=== PATIENT | male | born 1945 | race Caucasian/White ===

== ENCOUNTER → 2017-12-15 10:48 | Outpatient (CLI) | payer MEDICARE, SELFPAY ==
[2017-12-15 12:00] LABS: Add Manual Diff / Slide Review NO; Basophils Percent Auto 0.3 % (0-2); Eosinophils Percent Auto 0.7 % (2-4); Hematocrit 44.6 % (41-53); Hemoglobin 15.1 g/dL (13.5-17.5); Lymphocytes Percent Auto 28.3 % (25-40); Mean Corpuscular HGB Conc 33.9 % (30-36); Mean Corpuscular Hemoglobin 33.3 PG (26-34); Mean Corpuscular Volume 98.2 fL (80-100); Monocytes Percent Auto 7.6 % (3-14); Neutrophils Absolute Auto 4500 /uL (3000-5900); Neutrophils Percent Auto 63.1 % (50-75); Platelet Count 221 X10^3/uL (150-400); Red Blood Cell Count 4.54 X10^6/uL (4.5-5.9); Red Cell Distribution Width 13.9 % (11.6-14.8); White Blood Cell Count 7.1 X10^3/uL (4.5-11.0)
[2017-12-15 12:22] LABS: Carbon Dioxide 21 mmol/L (22-32); Chloride 107 mmol/L (98-107); HEMOLYSIS < 15 (0-50); Sodium 142 mmol/L (137-145)
== END ==
PROVIDERS: PCP Family Medicine; Visit Provider Orthopaedic Surgery
DX: M16.11 Unilateral primary osteoarthritis, right hip (principal); Z01.818 Encounter for other preprocedural examination; Z01.812 Encounter for preprocedural laboratory examination
CPT/HCPCS: 36415; 80051; 85025; 93005

== ENCOUNTER 2018-01-11 08:48 | Inpatient (IN) | payer MEDICARE, SELFPAY ==
[2018-01-04 08:46] VITALS: BMI 28.1
[2018-01-11] VITALS (12 sets, daily range): BP systolic 96–143; BP diastolic 46–85; PULSE 57–88; RESP 12–18; TEMP 36.1–36.6; O2SAT 94–100; BMI 28.5
--- NOTE | 2018-01-11 06:00 | DI.RAD.S_ITS ---
PROCEDURE: XR PELVIS 1-2V INDICATIONS: TOTAL RIGHT HIP TECHNIQUE: Single view(s) of the pelvis acquired. COMPARISON: None. FINDINGS: Bones: Expected postoperative alignment of right hip arthroplasty. No fractures or dislocations. No suspicious bony lesions. Soft tissues: Visualized bowel gas pattern is normal. No suspicious soft tissue calcifications. Right hip postsurgical soft tissue changes and skin rakesh. IMPRESSION: Expected postoperative appearance Dictated by: Lawson Verde M.D. on 01/11/2018 at 16:37 Approved by: Lawson Verde M.D. on 01/11/2018 at 16:38
[2018-01-11] MEDS: LACTATED RINGERS 1,000 ML 42 ML IV ×2 (09:05→11:32)
[2018-01-11] MEDS: ACETAMINOPHEN 325 MG TABLET 975 MG PO ×3 (09:32→20:56)
[2018-01-11] MEDS: CELECOXIB 200 MG CAPSULE PO (09:32)
[2018-01-11] MEDS: PREGABALIN 75 MG CAPSULE PO (09:32)
[2018-01-11] MEDS: CEFAZOLIN 1 GM VIAL IV (09:56)
--- NOTE | 2018-01-11 10:00 | PM.PREOP ---
Pre-operative Note Interval Note Pre-op Check: Yes History & Physical Reviewed by Physician Changes: No
--- NOTE | 2018-01-11 10:16 | PC.NURSE ---
Day shift: Pt not on AC unit at this time. 1000 start rt hip.
--- NOTE | 2018-01-11 10:35 | SUR.OPER ---
Lateral on padded OR bed. Gel axillary roll. Arms secured on padded armboard with pillow supporting top arm. Padded hip positioner braces x4 - anterior and posterior chest and pelvis. Additional gel pad used anterior pelvis. Gel pad under bottom leg from knee to foot and secured with tape over sheet.
[2018-01-11] MEDS: BUPIVACAINE 0.25% W/ EPI VIAL 50 ML INJ (10:41)
[2018-01-11] MEDS: TRANEXAMIC ACID 1,000 MG VIAL 2000 MG INJ (10:42)
--- NOTE | 2018-01-11 11:51 | PM.OP.1 ---
Operative Date/Time/Diagnoses Date of procedure: 01/11/18 Time of procedure: 11:51 Pre-op diagnosis: Right hip degenerative joint disease Post-op diagnosis: same Procedure & Clinicians Procedure: Right total hip arthroplasty (CPT code 61760 with gynecological assistant) Same procedure as scheduled: Yes Indications: Patient is an 71-year-old male with severe right hip DJD. The patient has pain with activities and at rest, limited ambulation and activity tolerance, difficulties with ADLs, and failure of conservative treatment. We have discussed the nature of condition, treatment options, risks and benefits, and patient elects to proceed with total hip arthroplasty and gives informed consent. Surgeon: Hernán Almonte Threat Analyst: Kym Thao Anesthesia Type: General and Spinal Operative Notes Closure Type: primary Specimen(s): none sent Implants & Drains: Acetabulum: Hernández [employer]hew R3 acetabular component size 56 mm Femoral component: Hernán[employer]hew Synergy stem size 14 with high offset Femoral head: 36 mm + 0 cobalt chrome Estimated Blood Loss (mL): 100 Procedure in detail: After satisfaction induction of anesthetic, and administration of IV antibiotics, the patient was positioned in the lateral decubitus position with all bony prominences well padded and pelvic position secured using a hip journalism teacher positioning device. Right hip and lower extremity prepped and draped in the usual sterile fashion, 1st dose of intravenous tranexamic acid was administered, then a longitudinal incision was created centered over the greater trochanter and carried sharply through the skin and subcutaneous tissues down to the fascia gilda which was divided longitudinally and retracted with a Charnley retractor. External rotators visualize, cut, tagged, and retracted posteriorly, then the capsule was cut in a T-type fashion with the corners tagged and retracted. Hip was dislocated and femoral neck cut made according to preoperative templating. Acetabular retractors then placed, and the acetabular labrum and osteophytes were excised. The acetabulum was then sequentially reamed to 55 mm with an excellent circumferential ream and fit with the trial. The trial component was removed and a permanent size 56 mm Hernández [employer]hew R3 acetabular component was selected, positioned, and impacted with satisfactory position and fixation achieved. Permanent liner was then inserted with the elevated lip directed posteriorly. Soft tissue then removed off the lateral femoral neck in the lateral neck was entered using a box osteotome. T-handled reamers placed down the canal followed by sequential broaching to 14 with the final broach left in place for trial reduction which demonstrated excellent leg length, range of motion, and stability characteristics with a high offset neck and 36 mm +0 trial ball. The trial and broach were removed, and a permanent size 14 high offset Hernández [employer]hew Synergy stem was selected and inserted with excellent position and fixation achieved. Another trial reduction yielded the above characteristics so the trial ball was exchanged for a permanent 36 mm +0 cobalt chrome ball. The hip was irrigated and reduced and excellent leg length range of motion and stability characteristics were achieved and maintained. The hip was copiously irrigated, and the capsule repaired with #2 Ethibond, and the piriformis was repaired back to the greater trochanter with the same. Fascia gilda closed with interrupted #1 Ethibond sutures, and the subcutaneous tissues were closed in 2 layers of 0 Vicryl and 2 0 Vicryl. Skin was closed with rakesh and sterile dressings applied. Second dose of tranexamic acid was administered intravenously, and the anesthetic was terminated. Complications: none Condition: stable Disposition: PACU Plan for aftercare: Patient will be admitted to the acute care [facility], and anticipate discharge on postop day 3 and anticipated ECF transfer due to his living situation, with follow-up in office in 10-14 days. Outpatient physical therapy will be arranged and patient will continue to observe posterior hip precautions. Patient will continue use of postoperative Lovenox for 10 days postop.
--- NOTE | 2018-01-11 11:55 | P.OP_ITS ---
Operative Date/Time/Diagnoses Date of procedure: 01/11/18 Time of procedure: 11:51 Pre-op diagnosis: Right hip degenerative joint disease Post-op diagnosis: same Procedure & Clinicians Procedure: Right total hip arthroplasty (CPT code 32116 with general office assistant) Same procedure as scheduled: Yes Indications: Patient is an 71-year-old male with severe right hip DJD. The patient has pain with activities and at rest, limited ambulation and activity tolerance, difficulties with ADLs, and failure of conservative treatment. We have discussed the nature of condition, treatment options, risks and benefits, and patient elects to proceed with total hip arthroplasty and gives informed consent. Surgeon: Hernán Almonte Continuous Dryout Operator Helper: Kym Thao Anesthesia Type: General and Spinal Operative Notes Closure Type: primary Specimen(s): none sent Implants & Drains: Acetabulum: Hernández [employer]hew R3 acetabular component size 56 mm Femoral component: Hernán[employer]hew Synergy stem size 14 with high offset Femoral head: 36 mm + 0 cobalt chrome Estimated Blood Loss (mL): 100 Procedure in detail: After satisfaction induction of anesthetic, and administration of IV antibiotics, the patient was positioned in the lateral decubitus position with all bony prominences well padded and pelvic position secured using a hip communications professional positioning device. Right hip and lower extremity prepped and draped in the usual sterile fashion, 1st dose of intravenous tranexamic acid was administered, then a longitudinal incision was created centered over the greater trochanter and carried sharply through the skin and subcutaneous tissues down to the fascia gilda which was divided longitudinally and retracted with a Charnley retractor. External rotators visualize, cut, tagged, and retracted posteriorly, then the capsule was cut in a T-type fashion with the corners tagged and retracted. Hip was dislocated and femoral neck cut made according to preoperative templating. Acetabular retractors then placed, and the acetabular labrum and osteophytes were excised. The acetabulum was then sequentially reamed to 55 mm with an excellent circumferential ream and fit with the trial. The trial component was removed and a permanent size 56 mm Hernández [employer] Nephew R3 acetabular component was selected, positioned, and impacted with satisfactory position and fixation achieved. Permanent liner was then inserted with the elevated lip directed posteriorly. Soft tissue then removed off the lateral femoral neck in the lateral neck was entered using a box osteotome. T-handled reamers placed down the canal followed by sequential broaching to 14 with the final broach left in place for trial reduction which demonstrated excellent leg length, range of motion, and stability characteristics with a high offset neck and 36 mm +0 trial ball. The trial and broach were removed, and a permanent size 14 high offset Hernández [employer] Nephew Synergy stem was selected and inserted with excellent position and fixation achieved. Another trial reduction yielded the above characteristics so the trial ball was exchanged for a permanent 36 mm +0 cobalt chrome ball. The hip was irrigated and reduced and excellent leg length range of motion and stability characteristics were achieved and maintained. The hip was copiously irrigated, and the capsule repaired with #2 Ethibond, and the piriformis was repaired back to the greater trochanter with the same. Fascia gilda closed with interrupted #1 Ethibond sutures, and the subcutaneous tissues were closed in 2 layers of 0 Vicryl and 2 0 Vicryl. Skin was closed with rakesh and sterile dressings applied. Second dose of tranexamic acid was administered intravenously , and the anesthetic was terminated. Complications: none Condition: stable Disposition: PACU Plan for aftercare: Patient will be admitted to the acute care [facility], and anticipate discharge on postop day 3 and anticipated ECF transfer due to his living situation, with follow-up in office in 10-14 days. Outpatient physical therapy will be arranged and patient will continue to observe posterior hip precautions. Patient will continue use of postoperative Lovenox for 10 days postop.
--- NOTE | 2018-01-11 12:00 | PC.NURSE ---
Day shift: Arrived on unit from PACU in AC be at approx 1200. No pain. Good cap refill but no sensation BLE's. HAd spinal. A&Ox3. Partner Kelli at the bedside for support. Oriented to room and call light. HFR for now. Agrees to not get OOB w/o help. Bulky dressing is CDI. RA 96%.
[2018-01-11] MEDS: LACTATED RINGERS 1,000 ML 125 ML IV ×2 (13:11→20:21)
--- NOTE | 2018-01-11 13:26 | PT.IPTN ---
Current Diagnoses Unilateral primary osteoarthritis, right hip (01/11/18) Surgery Performed Operation Date: 01/11/18 10:00 Actual Procedures p Total Hip Arthroplasty(Right) - Hernán Almonte MD Physical Therapy Treatment Note M3 PT-IP Subjective Start: 01/11/18 13:24 Freq: NEEDED Status: Active Protocol: Document 01/11/18 13:24 (Rec: 01/11/18 13:26 [email or web address]) Subjective Physical Therapy Visit Type Notes PT checked on pt readiness for evaluation. Pt was agreeable to mobilize but was still lacking any sensation in the R LE. Told pt we will check on him again in about 1 hr.
--- NOTE | 2018-01-11 14:42 | PT.IIE ---
Addendum entered and electronically signed by Yoana Reed, PT 01/11/18 15:51: I certify I directly supervised and guided this session. R Calli Reed DPT Original Note: Current Diagnoses Unilateral primary osteoarthritis, right hip (01/11/18) Surgery Performed Operation Date: 01/11/18 10:00 Actual Procedures p Total Hip Arthroplasty(Right) - Hernán Almonte MD Surgical History (Last Updated 01/04/18 @ 09:18 by Bree March RN) Hx of chest tube placement (Acute) Hx of tonsillectomy (Acute) Medical History (Last Updated 01/04/18 @ 09:18 by Bree March RN) Enlarged prostate (Acute) Hx of fracture of rib (Acute) Rash (Acute) Physical Therapy Inpatient Evaluation/Re-Eval M1 PT/OT-IP Prior Functional Status Start: 01/11/18 13:24 Freq: NEEDED Status: Active Protocol: Document 01/11/18 14:42 (Rec: 01/11/18 15:46 [email or web address]) Medical Review Prior Functional Status Medical History Reviewed Yes Communication No deficits noted Mobility and Gait Pt was independent with all mobilities. Social History Household Members significant other Number of Stairs To Enter/Railing? None to enter. Home Environment Standard Height Toilet Home Equipment Front Wheel Walker Additional Social History Comment Pt lives on a boat in [facility] with his S.O. who is avaliable to assist intermittently. M2 PT-IP Current Condition Start: 01/11/18 13:24 Freq: NEEDED Status: Active Protocol: Document 01/11/18 14:42 (Rec: 01/11/18 15:43 [email or web address]) Physical Therapy Current Condition Current Condition Evaluation Date 01/11/18 Treatment Diagnosis R YASMIN; difficulty walking Onset Date 01/11/2018 Precautions Posterior Hip Precautions No Hip Flexion > 90 degrees No Hip Internal Rotation No Hip Adduction Weight Bearing Status Weight Bearing Status Weight Bear as Tolerated M3 PT-IP Subjective Start: 01/11/18 13:24 Freq: NEEDED Status: Active Protocol: Document 01/11/18 14:42 (Rec: 01/11/18 15:43 [email or web address]) Subjective Physical Therapy Visit Type Type Initial Evaluation Visit Start Time 14:42 Visit Stop Time 15:16 Total Visit Minutes 34 Number of SHERIFF SERGEANT Visits 0 Physical Therapy Visit Comments Patient Comments Pt agreeable to mobilize with PT Patient Goals Pt's goal is to go to SNF for rehab Therapy Pain Assessment Pain When Pain Assessed During Mobility Pain Present Pain Present Denied Pain M4 PT-IP Mobility and Gait Start: 01/11/18 13:24 Freq: NEEDED Status: Active Protocol: Document 01/11/18 14:42 (Rec: 01/11/18 15:43 [email or web address]) PT-Bed Mobility Assessment Supine to Sit Supine to Sit Standby Assistance Scooting Scooting to Edge of Bed Standby Assistance PT-Transfer Assessment Sit to and From Stand Sit to and from Stand Minimal Assistance 1 Person Assistance Use of Upper Extremities Equipment Transfer Assistive Device Gait Belt Front Wheeled Walker Orthotic/Prosthetic Devices or Brace: No Transfers Transfer Destination Chair Comments Mobility Comments Resting BP is 140/92, UT 60 and O2 at rest 98%. Pt moves slowly but able to complete supine > sit SBA with min cues for maintainin precations. Sit <> stand is minAx1 for ascent with mod cues for maintaining precuations as well as body mechanics and hand placement. Standing BP 113/76. UT 80 and pt c/o of mild dizziness. Pt cued for standing rest with deep breathing. C/o dizziness decrease and pt agreeable to ambulate. Gait Assessment Gait Gait Assistance Required: Contact Guard Assist Able to Maintain Weight Bearing Status Yes During Gait Assistive Devices Assistive Device Gait Belt Front Wheeled Walker Orthotic/Prosthetic Devices or Brace: No Gait Deviations General Gait Pattern Decreased Stride Length Decreased Feet Clearance Factors Limiting Gait Function Factors Limiting Gait Function Decreased Activity Tolerance Decreased Sensation Decreased Strength Limited Range of Motion Pain Poor Balance Poor Safety Awareness Comments Gait Comments Pt ambulates 10 ft. in room with fww and CGA. He demonstrates step-through pattern and shortened, but symmetrical step length B. During stance on R LE, pt demonstrates slight buckling that he is able to correct with min cues to activate RLE muscles. Seated break at EOB: BP 139/90 UT 108. Pt no longer c/o dizziness. Ambulates additional 10 ft in room fww CGA. PT-Balance Assessment Sitting Balance and Reactions Static Sitting Balance Ability Good Dynamic Sitting Balance Ability Good Standing Balance and Reactions Static Standing Balance Ability Fair Dynamic Standing Balance Ability Fair Device Used fww M5 PT-IP Objective Assessments Start: 01/11/18 13:24 Freq: NEEDED Status: Active Protocol: Document 01/11/18 14:42 (Rec: 01/11/18 15:43 [email or web address]) Orientation Orientation/Cognition Level of Alertness Alert Orientation Name Age Birthday Month Date Year Day of Week Place Situation Safety Awareness Decreased Safety Awareness Gross Range of Motion Lower Extremity ROM Assessment Right Impaired Impairments Posterior hip precautions. Strength Lower Extremity Strength Assessment Right Impaired Comments Strength Comments RLE grossly 3+/5. LLE WNL Sensation Assessment Sensation Light Touch Impaired Comments Sensation Comments Pt has some tingling in RLE and sensation is decreased. M6 PT-IP Treatment Start: 01/11/18 13:24 Freq: NEEDED Status: Active Protocol: Document 01/11/18 14:42 (Rec: 01/11/18 15:43 [email or web address]) Physical Therapy Treatment Exercises Exercises Ankle Pumps Gluteal Sets Quad Sets Heel Slides Supine Hip Abduction Education Education Provided Precautions Weight Bearing Status Post-Op Packet Safety M7 PT-IP Assessment and Plan Start: 01/11/18 13:24 Freq: NEEDED Status: Active Protocol: Document 01/11/18 14:42 (Rec: 01/11/18 15:43 [email or web address]) PT Summary Assessment and Plan Potential Rehabilitation Potential Good Status of Condition at Evaluation Stable Summary Impairments ROM Strength Balance Sensation Bed Mobility Transfers Gait Activity Tolerance Progress Towards Goals Progressing Toward Goals Assessment Summary Pt s/p R YASMIN with difficulty walking. He was able to ambulate 20 ft in room with fww and CGA with a seated rest break. He required minAx1 and fww with sit <> stand and had some signs of orthostatic hypotension with dizziness and decreased BP. To discharge home safely the pt would have to be independent with all mobilities including ability to ambulate on a dynamic surface independently as he lives on a boat and does not have 24/7 assist avaliable to him. Recommend d/c to SNF at this time due to pts current need for assist and for skilled balance training. Goals Bed Mobility Goal Independent Transfer Goal Contact Guard Assistance Gait Goal Standby Assistance Gait Distance 100 Days to Meet Goals 3 Frequency of Treatment Frequency Of Treatment Twice a Day Treatment Plan Physical Therapy Treatment Plan Bed Mobility Training Transfer Training Gait Training Therapeutic Exercise Balance Retraining Post Op Education Discharge Planning Hot or Cold Pack Neuromuscular Re-ed Coordination Retraining Manual Therapy Other Recommendations and Next Treatment gait training. ambulation Focus training Recommendations To Nursing Amount of Assist Needed 1 Person Assist Discharge Recommendations PT Discharge Recommendations SNF Rehab
--- NOTE | 2018-01-11 16:58 | PC.NURSE ---
Addendum entered by Kezia Booker R.N. 01/11/18 18:53: after dinner pt went on walk with S.O. around [facility]. tolerated well. pt states he had full feeling in legs. some soreness to right hip from incision pain he believes. will continue to monitor. Original Note: Assumed care of pt from outgoing shift at 1500 this day. Pt denies pain. able to ambulate as tolerated. did void in urinal. Pt eating dinner. tolerating. given scheduled tylenol per MAY. but pt still denies pain. able to feel pressure to legs but sensation not yet back entirely. Pt uses call light. SO Kelli in room and helps pt. Pt calls appropriately. Belongings and call light within reach. will continue to monitor.
[2018-01-11] MEDS: HYDROCODONE/ACET 5/325 TABLET 1 TAB PO (19:26)
[2018-01-11] MEDS: hydrOXYzine pamoate 25 MG CAPSULE PO (19:27)
[2018-01-11] MEDS: ASPIRIN EC 81 MG TABLET PO (20:56)
[2018-01-12 00:03] VITALS: BP 105/57; PULSE 80; RESP 16; TEMP 36.4; O2SAT 94
[2018-01-12] MEDS: HYDROCODONE/ACET 5/325 TABLET 1 TAB PO ×5 (00:15→22:39)
[2018-01-12] MEDS: ZOLPIDEM 5 MG TABLET PO ×2 (00:15→23:44)
--- NOTE | 2018-01-12 00:22 | PC.NURSE ---
Addendum entered by Vita Kenyon R.N. 01/12/18 06:25: Slept most of shift. States pain is holding at 4/10 this morning; medicated with Vicodin and ice applied. Original Note: Patient is alert and oriented. Breath sounds CTA with RA sat of 95%. HRR. Denies nausea. BT hypoactive; states he has passed a little flatus. Voiding per urinal and denies dysuria, frequency, urgency or incontinence. Is able to assist in repositioning. Dressing to right hip is CDI. Complains of 4/10 pain; medicated with Vicodin. CMS intact but is unable to lift right leg except for lifting foot slightly off bed. Wearing bilateral SCD's. Medicated with Ambien for sleep. Fall risk score is moderate and bed alarm activated.
[2018-01-12] MEDS: LACTATED RINGERS 1,000 ML 125 ML IV (04:20)
[2018-01-12 04:34] VITALS: BP 96/60; PULSE 65; RESP 18; TEMP 36.9; O2SAT 95
[2018-01-12 05:38] LABS: Hematocrit 35.1 % (41-53)
[2018-01-12 08:00] VITALS: BP 101/50; PULSE 78; RESP 16; TEMP 36.7; O2SAT 97
--- NOTE | 2018-01-12 09:03 | P.PN_ITS ---
Subjective Date Patient Seen: 01/12/18 Interval history: Patient seen bedside s/p R. YASMIN with Dr. Almonte on 01/11/18. Patient is POD #1. Patient is doing well, his pain is controlled and he has been up with physical therapy. He denies N/V, SOB, CP, and calf pain. He lives [place] a boat so plans to go to a rehab center in [place] after discharge. Exam Vital Signs (past 8 hours): - 01/12/18 04:34 01/12/18 08:00 Temperature 98.4 F 98.1 F Pulse Rate 65 78 Respiratory Rate 18 16 Blood Pressure 96/60 101/50 L Pulse Oximetry 95 97 Oxygen Delivery Method Room Air Narrative Exam Narrative: WDWN NAD A&Ox3. Dressing CDI, minimal erythema/edema surrounding incision site. NVI in operative extremity, calves are soft and compressible. Objective Labs Result Diagrams: 01/12/18 05:24 Labs: Laboratory Results - last 24 hr 01/12/18 05:24 Hgb 12.0 L Hct 35.1 L Assessment & Plan Post-op Postoperative Procedures Operation Date: 01/11/18 10:00 Actual Procedures Side Surgeon p Total Hip Arthroplasty Right Hernán Almonte MD 1. POD #1 from above procedure. Continue PT, pain management, DVT prophylaxis with lovenox, ASA. Discharge to SNF on . Quality VTE Deep Vein Thrombosis/Pulmonary Embolism Present on Admission: No
[2018-01-12] MEDS: ASPIRIN EC 81 MG TABLET PO ×2 (09:36→20:26)
[2018-01-12] MEDS: ENOXAPARIN 40 MG/0.4 ML SYRINGE SUBCUT (09:36)
--- NOTE | 2018-01-12 09:36 | PT.IPTN ---
Current Diagnoses Unilateral primary osteoarthritis, right hip (01/11/18) Surgery Performed Operation Date: 01/11/18 10:00 Actual Procedures p Total Hip Arthroplasty(Right) - Hernán Almonte MD Physical Therapy Treatment Note M2 PT-IP Current Condition Start: 01/11/18 13:24 Freq: NEEDED Status: Active Protocol: Document 01/11/18 14:42 (Rec: 01/11/18 15:43 [email or web address]) Physical Therapy Current Condition Current Condition Evaluation Date 01/11/18 Treatment Diagnosis R YASMIN; difficulty walking Onset Date 01/11/2018 Precautions Posterior Hip Precautions No Hip Flexion > 90 degrees No Hip Internal Rotation No Hip Adduction Weight Bearing Status Weight Bearing Status Weight Bear as Tolerated M3 PT-IP Subjective Start: 01/11/18 13:24 Freq: NEEDED Status: Active Protocol: Document 01/12/18 08:30 RS (Rec: 01/12/18 09:35 RS [email or web address]) Subjective Physical Therapy Visit Type Type Treatment Note Visit Start Time 08:02 Visit Stop Time 08:30 Total Visit Minutes 28 Physical Therapy Visit Comments Patient Comments Pt reports not getting as much sleep last night but is more than willing to participate in therapy today. Therapy Pain Assessment Pain When Pain Assessed At Rest Pain Present Pain Present Denied Pain M4 PT-IP Mobility and Gait Start: 01/11/18 13:24 Freq: NEEDED Status: Active Protocol: Document 01/12/18 08:30 RS (Rec: 01/12/18 09:35 RS [email or web address]) PT-Bed Mobility Assessment Supine to Sit Supine to Sit Minimal Assistance Scooting Scooting to Edge of Bed Standby Assistance PT-Transfer Assessment Sit to and From Stand Sit to and from Stand Contact Guard Assistance 1 Person Assistance Use of Upper Extremities Equipment Transfer Assistive Device Gait Belt Front Wheeled Walker Transfers Transfer Destination Chair Comments Mobility Comments Vitals in bed prior to mobilization: BP 109/51, HR 72 Vitals sitting EOB: BP 123/71, HR 83 Gait Assessment Gait Gait Assistance Required: Contact Guard Assist Distance (Feet) 140 Assistive Devices Assistive Device Gait Belt Front Wheeled Walker Gait Deviations General Gait Pattern Decreased Stride Length Decreased Feet Clearance Factors Limiting Gait Function Factors Limiting Gait Function Decreased Activity Tolerance Decreased Sensation Decreased Strength Limited Range of Motion Pain Poor Balance Poor Safety Awareness Comments Gait Comments Amb with heavy BUE reliance on FWW, but more symmetrical stepping pattern than yesterday. PT-Balance Assessment Sitting Balance and Reactions Static Sitting Balance Ability Good Dynamic Sitting Balance Ability Good Standing Balance and Reactions Static Standing Balance Ability Fair Dynamic Standing Balance Ability Fair Device Used fww M5 PT-IP Objective Assessments Start: 01/11/18 13:24 Freq: NEEDED Status: Active Protocol: Document 01/11/18 14:42 (Rec: 01/11/18 15:43 [email or web address]) Orientation Orientation/Cognition Level of Alertness Alert Orientation Name Age Birthday Month Date Year Day of Week Place Situation Safety Awareness Decreased Safety Awareness Gross Range of Motion Lower Extremity ROM Assessment Right Impaired Impairments Posterior hip precautions. Strength Lower Extremity Strength Assessment Right Impaired Comments Strength Comments RLE grossly 3+/5. LLE WNL Sensation Assessment Sensation Light Touch Impaired Comments Sensation Comments Pt has some tingling in RLE and sensation is decreased. M6 PT-IP Treatment Start: 01/11/18 13:24 Freq: NEEDED Status: Active Protocol: Document 01/11/18 14:42 (Rec: 01/11/18 15:43 [email or web address]) Physical Therapy Treatment Exercises Exercises Ankle Pumps Gluteal Sets Quad Sets Heel Slides Supine Hip Abduction Education Education Provided Precautions Weight Bearing Status Post-Op Packet Safety M7 PT-IP Assessment and Plan Start: 01/11/18 13:24 Freq: NEEDED Status: Active Protocol: Document 01/12/18 08:30 RS (Rec: 01/12/18 09:35 RS [email or web address]) PT Summary Assessment and Plan Potential Rehabilitation Potential Good Status of Condition at Evaluation Stable Summary Impairments ROM Strength Balance Sensation Bed Mobility Transfers Gait Activity Tolerance Progress Towards Goals Progressing Toward Goals Assessment Summary Pt is progressing well thus far, able to walk further than yesterday and with less antalgic gait. Pt still not safe to amb without FWW, and is therefore unsafe to return home at this time. Continue to recommend transition to SNF rehab when medically ready. Goals Bed Mobility Goal Independent Transfer Goal Contact Guard Assistance Gait Goal Standby Assistance Gait Distance 200 Days to Meet Goals 2 Frequency of Treatment Frequency Of Treatment Twice a Day Treatment Plan Physical Therapy Treatment Plan Bed Mobility Training Transfer Training Gait Training Therapeutic Exercise Balance Retraining Post Op Education Discharge Planning Hot or Cold Pack Neuromuscular Re-ed Coordination Retraining Manual Therapy Other Recommendations and Next Treatment begin stair training, continue Focus strengthening Recommendations To Nursing Amount of Assist Needed 1 Person Assist Discharge Recommendations PT Discharge Recommendations SNF Rehab
[2018-01-12 11:00] VITALS: BP 114/57; PULSE 76; RESP 16; TEMP 36.5; O2SAT 97
--- NOTE | 2018-01-12 11:47 | CM.DPC ---
Referral faxed to [facility] [phone] per Traci
--- NOTE | 2018-01-12 11:48 | CM.DANOTE ---
DCP: Case received, EMR reviewed and met with patient. Introduced self and role. DCP template completed with information currently available. Patient is a 72 year old male who admitted yesterday morning to the care of the hospitalist team. PCP: Dr. Preston. Payer: confirmed: Medicare/[employer] Patient came to hospital for right total hip arthroplasty. Patient is alert and oriented. Lives in [place]. Is knowing that he will need snf for short term rehabilitation, for he will not be able to manage on his boat. Has Medicare primary, and will need 3 day stay, which patient and ortho is aware of. Was going to give patient Medicare choice list, but is requesting [facility] in [place], for he stated it's closer to where he resides. Called [facility] admissions, Cathy. Her direct number is [phone]. Gave her update on patient, as well as insurance info. She is asking that we fax information to her, clinical notes, face sheet, etc. Went ahead and faxed information to her. P: DCP to continue to follow. Patient wishes to go to [facility] upon discharge. Will keep in contact with Cathy at [facility] as this is patient's request. Halley Day RN/Cloud Architect
[2018-01-12] MEDS: hydrOXYzine pamoate 25 MG CAPSULE PO ×2 (13:37→20:26)
--- NOTE | 2018-01-12 14:07 | PT.IPTN ---
Addendum entered and electronically signed by Yoaan Reed, PT 01/12/18 14:54: I certify I directly supervised and guided this session. R Calli Reed DPT Original Note: Current Diagnoses Unilateral primary osteoarthritis, right hip (01/11/18) Surgery Performed Operation Date: 01/11/18 10:00 Actual Procedures p Total Hip Arthroplasty(Right) - Hernán Almonte MD Physical Therapy Treatment Note M2 PT-IP Current Condition Start: 01/11/18 13:24 Freq: NEEDED Status: Active Protocol: Document 01/11/18 14:42 (Rec: 01/11/18 15:43 [email or web address]) Physical Therapy Current Condition Current Condition Evaluation Date 01/11/18 Treatment Diagnosis R YASMIN; difficulty walking Onset Date 01/11/2018 Precautions Posterior Hip Precautions No Hip Flexion > 90 degrees No Hip Internal Rotation No Hip Adduction Weight Bearing Status Weight Bearing Status Weight Bear as Tolerated M3 PT-IP Subjective Start: 01/11/18 13:24 Freq: NEEDED Status: Active Protocol: Document 01/12/18 14:07 (Rec: 01/12/18 14:51 [email or web address]) Subjective Physical Therapy Visit Type Type Treatment Note Visit Start Time 14:07 Visit Stop Time 14:27 Total Visit Minutes 20 Number of PHOTOGRAPHY TEACHER Visits 0 Physical Therapy Visit Comments Patient Comments Pt just walked with nursing and is reluctant to mobilize. He is agreeable to performing in bed exercises this session . Therapy Pain Assessment Pain When Pain Assessed During Mobility Pain Present Pain Present Pain Reported Location Right Hip Scale Used reported as low while resting. Up to 5/10 with bed exercises Pain Management Techniques Apply Cold Re-positioning Timing of Activity with Medications M4 PT-IP Mobility and Gait Start: 01/11/18 13:24 Freq: NEEDED Status: Active Protocol: Document 01/12/18 08:30 RS (Rec: 01/12/18 09:35 RS [email or web address]) PT-Bed Mobility Assessment Supine to Sit Supine to Sit Minimal Assistance Scooting Scooting to Edge of Bed Standby Assistance PT-Transfer Assessment Sit to and From Stand Sit to and from Stand Contact Guard Assistance 1 Person Assistance Use of Upper Extremities Equipment Transfer Assistive Device Gait Belt Front Wheeled Walker Transfers Transfer Destination Chair Comments Mobility Comments Vitals in bed prior to mobilization: BP 109/51, HR 72 Vitals sitting EOB: BP 123/71, HR 83 Gait Assessment Gait Gait Assistance Required: Contact Guard Assist Distance (Feet) 140 Assistive Devices Assistive Device Gait Belt Front Wheeled Walker Gait Deviations General Gait Pattern Decreased Stride Length Decreased Feet Clearance Factors Limiting Gait Function Factors Limiting Gait Function Decreased Activity Tolerance Decreased Sensation Decreased Strength Limited Range of Motion Pain Poor Balance Poor Safety Awareness Comments Gait Comments Amb with heavy BUE reliance on FWW, but more symmetrical stepping pattern than yesterday. PT-Balance Assessment Sitting Balance and Reactions Static Sitting Balance Ability Good Dynamic Sitting Balance Ability Good Standing Balance and Reactions Static Standing Balance Ability Fair Dynamic Standing Balance Ability Fair Device Used fww M5 PT-IP Objective Assessments Start: 01/11/18 13:24 Freq: NEEDED Status: Active Protocol: Document 01/11/18 14:42 (Rec: 01/11/18 15:43 [email or web address]) Orientation Orientation/Cognition Level of Alertness Alert Orientation Name Age Birthday Month Date Year Day of Week Place Situation Safety Awareness Decreased Safety Awareness Gross Range of Motion Lower Extremity ROM Assessment Right Impaired Impairments Posterior hip precautions. Strength Lower Extremity Strength Assessment Right Impaired Comments Strength Comments RLE grossly 3+/5. LLE WNL Sensation Assessment Sensation Light Touch Impaired Comments Sensation Comments Pt has some tingling in RLE and sensation is decreased. M6 PT-IP Treatment Start: 01/11/18 13:24 Freq: NEEDED Status: Active Protocol: Document 01/12/18 14:07 (Rec: 01/12/18 14:51 [email or web address]) Physical Therapy Treatment Exercises Exercises Ankle Pumps Gluteal Sets Quad Sets Heel Slides Supine Hip Abduction Education Education Provided Precautions Weight Bearing Status Post-Op Packet Safety Other Treatments Other Treatment Performed Ankle pumps x20 Quad sets X10 Heel slides with light manual resistance X10 Supine hip abduction with light manual resistance X10 Supine bridges X5, 5 sec holds . Glute sets X10 M7 PT-IP Assessment and Plan Start: 01/11/18 13:24 Freq: NEEDED Status: Active Protocol: Document 01/12/18 14:07 (Rec: 01/12/18 14:51 [email or web address]) PT Summary Assessment and Plan Potential Rehabilitation Potential Good Summary Impairments Pain ROM Strength Balance Bed Mobility Transfers Gait Activity Tolerance Progress Towards Goals Progressing Toward Goals Assessment Summary Pt performed in bed exercises this session per request as he just ambulated with nursing. He reported most difficulty with heel slides, supine bride and hip abduction. No changes to current treatment or d/c recommendations. Goals Bed Mobility Goal Independent Transfer Goal Contact Guard Assistance Gait Goal Standby Assistance Gait Distance 200 Days to Meet Goals 2 Frequency of Treatment Frequency Of Treatment Twice a Day Treatment Plan Physical Therapy Treatment Plan Bed Mobility Training Transfer Training Gait Training Therapeutic Exercise Balance Retraining Post Op Education Discharge Planning Hot or Cold Pack Neuromuscular Re-ed Coordination Retraining Manual Therapy Other Recommendations and Next Treatment stair climbing. Ambulation. Focus Functional strengthening, Recommendations To Nursing Amount of Assist Needed 1 Person Assist Discharge Recommendations PT Discharge Recommendations SNF Rehab
[2018-01-12] MEDS: ACETAMINOPHEN 325 MG TABLET 975 MG PO ×2 (14:55→20:26)
[2018-01-12 15:20] VITALS: BP 130/69; PULSE 77; RESP 18; TEMP 36.8; O2SAT 97
[2018-01-12 19:40] VITALS: BP 116/69; PULSE 85; RESP 18; TEMP 36.7; O2SAT 94
[2018-01-12] MEDS: SODIUM CHLORIDE 0.9% FLUSH 10 ML IV (20:27)
[2018-01-13] VITALS (7 sets, daily range): BP systolic 102–127; BP diastolic 59–81; PULSE 69–83; RESP 14–18; TEMP 36.4–37.2; O2SAT 93–97
[2018-01-13] MEDS: HYDROCODONE/ACET 5/325 TABLET 1 TAB PO ×5 (03:49→23:53)
[2018-01-13] MEDS: hydrOXYzine pamoate 25 MG CAPSULE PO ×2 (03:49→09:38)
[2018-01-13] MEDS: ASPIRIN EC 81 MG TABLET PO ×2 (09:38→22:10)
[2018-01-13] MEDS: ENOXAPARIN 40 MG/0.4 ML SYRINGE SUBCUT (09:39)
[2018-01-13] MEDS: ACETAMINOPHEN 325 MG TABLET 975 MG PO (09:39)
--- NOTE | 2018-01-13 09:56 | PC.NURSE ---
Pt refused SCDs while in bed - has been ambulating frequently and doing ankle waves. No obvious sign of DVT or related
--- NOTE | 2018-01-13 09:59 | PT.IPTN ---
Current Diagnoses Unilateral primary osteoarthritis, right hip (01/11/18) Surgery Performed Operation Date: 01/11/18 10:00 Actual Procedures p Total Hip Arthroplasty(Right) - Hernán Almonte MD Physical Therapy Treatment Note M2 PT-IP Current Condition Start: 01/11/18 13:24 Freq: NEEDED Status: Active Protocol: Document 01/11/18 14:42 (Rec: 01/11/18 15:43 [email or web address]) Physical Therapy Current Condition Current Condition Evaluation Date 01/11/18 Treatment Diagnosis R YASMIN; difficulty walking Onset Date 01/11/2018 Precautions Posterior Hip Precautions No Hip Flexion > 90 degrees No Hip Internal Rotation No Hip Adduction Weight Bearing Status Weight Bearing Status Weight Bear as Tolerated M3 PT-IP Subjective Start: 01/11/18 13:24 Freq: NEEDED Status: Active Protocol: Document 01/13/18 09:50 SA (Rec: 01/13/18 09:59 SA [id number]) Subjective Physical Therapy Visit Type Type Treatment Note Visit Start Time 08:57 Visit Stop Time 09:23 Total Visit Minutes 25 Number of CRYSTAL CUTTER Visits 1 Physical Therapy Visit Comments Patient Comments Pt just finished breakfast and agreeable to PT. Rates hip pain as 3-4/10. Therapy Pain Assessment Pain When Pain Assessed During Mobility Pain Present Pain Present Pain Reported Location Right Hip Intensity 4 Scale Used Numeric (1 - 10) Pain Management Techniques Apply Cold Re-positioning Timing of Activity with Medications M4 PT-IP Mobility and Gait Start: 01/11/18 13:24 Freq: NEEDED Status: Active Protocol: Document 01/13/18 09:50 SA (Rec: 01/13/18 09:59 [id number]) PT-Bed Mobility Assessment Rolling Type of Rolling Roll to Left Supine to Sit Supine to Sit Minimal Assistance Sit to Supine Sit to Supine Minimal Assistance Scooting Scooting to Edge of Bed Standby Assistance PT-Transfer Assessment Sit to and From Stand Sit to and from Stand Standby Assistance 1 Person Assistance Use of Upper Extremities Equipment Transfer Assistive Device Gait Belt Front Wheeled Walker Transfers Transfer Destination Bed Toilet Transfer Ability Level of Assist Contact Guard Assistance Comments Mobility Comments Pt denies feeling dizzy or light headed. Able to transfer on off toilet with SBA-CGA. Mobilize Sup<>sit with Min A for RLE. Gait Assessment Gait Gait Assistance Required: Contact Guard Assist Distance (Feet) 150 Able to Maintain Weight Bearing Status Yes During Gait Assistive Devices Assistive Device Gait Belt Front Wheeled Walker Gait Deviations General Gait Pattern Decreased Stride Length Decreased Feet Clearance Factors Limiting Gait Function Factors Limiting Gait Function Decreased Activity Tolerance Decreased Strength Pain Comments Gait Comments Pt able to correct gait pattern with cues for decreased UE WBing and even step lengths to limit step to gait. PT-Balance Assessment Sitting Balance and Reactions Static Sitting Balance Ability Good Dynamic Sitting Balance Ability Good M5 PT-IP Objective Assessments Start: 01/11/18 13:24 Freq: NEEDED Status: Active Protocol: Document 01/11/18 14:42 (Rec: 01/11/18 15:43 [email or web address]) Orientation Orientation/Cognition Level of Alertness Alert Orientation Name Age Birthday Month Date Year Day of Week Place Situation Safety Awareness Decreased Safety Awareness Gross Range of Motion Lower Extremity ROM Assessment Right Impaired Impairments Posterior hip precautions. Strength Lower Extremity Strength Assessment Right Impaired Comments Strength Comments RLE grossly 3+/5. LLE WNL Sensation Assessment Sensation Light Touch Impaired Comments Sensation Comments Pt has some tingling in RLE and sensation is decreased. M6 PT-IP Treatment Start: 01/11/18 13:24 Freq: NEEDED Status: Active Protocol: Document 01/13/18 09:50 SA (Rec: 01/13/18 09:59 [id number]) Physical Therapy Treatment Exercises Exercises Ankle Pumps Gluteal Sets Quad Sets Heel Slides Supine Hip Abduction Education Education Provided Precautions Post-Op Packet Safety M7 PT-IP Assessment and Plan Start: 01/11/18 13:24 Freq: NEEDED Status: Active Protocol: Document 01/13/18 09:50 SA (Rec: 01/13/18 09:59 [id number]) PT Summary Assessment and Plan Frequency of Treatment Frequency Of Treatment Twice a Day Treatment Plan Physical Therapy Treatment Plan Bed Mobility Training Transfer Training Gait Training Therapeutic Exercise Balance Retraining Post Op Education Discharge Planning Hot or Cold Pack Neuromuscular Re-ed Coordination Retraining Manual Therapy Other Recommendations and Next Treatment stair climbing. Ambulation. Focus Functional strengthening, Recommendations To Nursing Amount of Assist Needed 1 Person Assist Discharge Recommendations PT Discharge Recommendations SNF Rehab
--- NOTE | 2018-01-13 11:01 | CM.DPC ---
DCP: continued: Case received, EMR reviewed and followed up with [facility] re plan for snf rehab. She initially offered w/c van transport but upon further look at the van schedule said it would not be available for tomorrow. Spoke with pt's partner, Kelli MandujanoScar (works as an RN for [employer] in [place]). She will pick pt up at d/c, expected tomorrow per ortho note of today. She has a mini van. Will need PT to help pt into the care/hip precautions and help out at snf end. Initially Kelli wished to stop along way and take pt to restaurant for lunch. After further discussion she agrees it will be better to defer this until pt has completed his snf rehab [facility] can accept pt early afternoon tomorrow if he is ready for d/c. Kelli has some questions re an herbal formula pt takes at night. She says pt did not discuss this with ortho team and the medication is not on his current med list. She is encourage to call [facility] to discuss how the snf might manage this. P: at this point: [facility] 1300. Car transport. Need: [facility]. (will do prior to d/c)
--- NOTE | 2018-01-13 12:48 | PM.PNPO.1 ---
Subjective Date Patient Seen: 01/13/18 Time Patient Seen: 07:35 Interval history: Patient POD #2 status post R YASMIN with Dr. Almonte on 01/11/18. Patient is lying in bed comfortably with no signs of distress. Patient reports that his pain is manageable at this time. Patient has been up with PT and reports walking the halls. [place] so plans to go to a [facility] tomorrow upon discharge. Patient denies any SOB, chest pain, nausea, vomiting, fever or chills. Exam Vital Signs (past 8 hours): - 01/13/18 06:17 01/13/18 08:00 01/13/18 11:00 Temperature 98.4 F 98.8 F 97.6 F Pulse Rate 69 69 81 Respiratory Rate 16 18 14 Blood Pressure 108/64 127/81 127/67 Pulse Oximetry 93 96 96 Oxygen Delivery Method Room Air Oxygen Flow Rate 0 Narrative Exam Narrative: Patient is AOx3. Patient is lying in bed in no acute distress. Radial and dorsalis pedis pulses 2+ and symmetric. 5/5 muscle strength in dorsiflexion, plantarflexion and beef tagger bilaterally. Sensation to light touch intact in LE bilaterally. R hip dressing CDI. Calfs are soft, non tender and compressible bilaterally. Objective Labs Result Diagrams: 01/12/18 05:24 Assessment & Plan Post-op Postoperative Procedures Operation Date: 01/11/18 10:00 Actual Procedures Side Surgeon p Total Hip Arthroplasty Right Hernán Almonte MD Postoperative day: 2 Postoperative status: doing well Postoperative plan: routine post-op care Postoperative plan narrative: Continue mobilizing, sitting in chair and ambulating with PT. Continue pain management and DVT prophylaxis with lovenox, ASA. Plan to discharge tomorrow to SNF. Time Spent With Patient less than 15 minutes Quality VTE Deep Vein Thrombosis/Pulmonary Embolism Present on Admission: No
--- NOTE | 2018-01-13 13:01 | P.PN_ITS ---
Subjective Date Patient Seen: 01/13/18 Time Patient Seen: 07:35 Interval history: Patient POD #2 status post R YASMIN with Dr. Almonte on 01/11/18. Patient is lying in bed comfortably with no signs of distress. Patient reports that his pain is manageable at this time. Patient has been up with PT and reports walking the halls. He lives [place] so plans to go to a [facility] tomorrow upon discharge. Patient denies any SOB, chest pain, nausea, vomiting, fever or chills. Exam Vital Signs (past 8 hours): - 01/13/18 06:17 01/13/18 08:00 01/13/18 11:00 Temperature 98.4 F 98.8 F 97.6 F Pulse Rate 69 69 81 Respiratory Rate 16 18 14 Blood Pressure 108/64 127/81 127/67 Pulse Oximetry 93 96 96 Oxygen Delivery Method Room Air Oxygen Flow Rate 0 Narrative Exam Narrative: Patient is AOx3. Patient is lying in bed in no acute distress. Radial and dorsalis pedis pulses 2+ and symmetric. 5/5 muscle strength in dorsiflexion, plantarflexion and athletic instructor bilaterally. Sensation to light touch intact in LE bilaterally. R hip dressing CDI. Calfs are soft, non tender and compressible bilaterally. Objective Labs Result Diagrams: 01/12/18 05:24 Assessment & Plan Post-op Postoperative Procedures Operation Date: 01/11/18 10:00 Actual Procedures Side Surgeon p Total Hip Arthroplasty Right Hernán Almonte MD Postoperative day: 2 Postoperative status: doing well Postoperative plan: routine post-op care Postoperative plan narrative: Continue mobilizing, sitting in chair and ambulating with PT. Continue pain management and DVT prophylaxis with lovenox, ASA. Plan to discharge tomorrow to SNF. Time Spent With Patient less than 15 minutes Quality VTE Deep Vein Thrombosis/Pulmonary Embolism Present on Admission: No
--- NOTE | 2018-01-13 14:23 | PC.NURSE ---
Day Shift: Patient doing very well. Walking with minimal SBA with FWW. Pain controlled with vicodin. No voiced complaints. Voiding. No acute distress. Call light in reach. Will continue to monitor.
--- NOTE | 2018-01-13 15:33 | PT.IPTN ---
Current Diagnoses Unilateral primary osteoarthritis, right hip (01/11/18) Surgery Performed Operation Date: 01/11/18 10:00 Actual Procedures p Total Hip Arthroplasty(Right) - Hrenán Almonte MD Physical Therapy Treatment Note M2 PT-IP Current Condition Start: 01/11/18 13:24 Freq: NEEDED Status: Active Protocol: Document 01/11/18 14:42 (Rec: 01/11/18 15:43 [email or web address]) Physical Therapy Current Condition Current Condition Evaluation Date 01/11/18 Treatment Diagnosis R YASMIN; difficulty walking Onset Date 01/11/2018 Precautions Posterior Hip Precautions No Hip Flexion > 90 degrees No Hip Internal Rotation No Hip Adduction Weight Bearing Status Weight Bearing Status Weight Bear as Tolerated M3 PT-IP Subjective Start: 01/11/18 13:24 Freq: NEEDED Status: Active Protocol: Document 01/13/18 15:23 SA (Rec: 01/13/18 15:33 SA [id number]) Subjective Physical Therapy Visit Type Type Treatment Note Visit Start Time 14:05 Visit Stop Time 14:33 Total Visit Minutes 28 Number of FRIT MIXER Visits 2 Physical Therapy Visit Comments Patient Comments Pt feeling good and ready to ambulate this afternoon. Therapy Pain Assessment Pain When Pain Assessed During Mobility Pain Present Pain Present Pain Reported Location Right Hip Intensity 2 Scale Used Numeric (1 - 10) Pain Management Techniques Apply Cold Re-positioning Timing of Activity with Medications M4 PT-IP Mobility and Gait Start: 01/11/18 13:24 Freq: NEEDED Status: Active Protocol: Document 01/13/18 15:23 SA (Rec: 01/13/18 15:33 [id number]) PT-Bed Mobility Assessment Rolling Type of Rolling Roll to Right Supine to Sit Supine to Sit Standby Assistance Sit to Supine Sit to Supine Standby Assistance Scooting Scooting to Edge of Bed Minimal Assistance PT-Transfer Assessment Sit to and From Stand Sit to and from Stand Standby Assistance 1 Person Assistance Use of Upper Extremities Equipment Transfer Assistive Device Gait Belt Front Wheeled Walker Transfers Transfer Destination Bed Transfer Ability Level of Assist Standby Assistance Comments Mobility Comments Pt able to clear legs over EOV for supine to sit but needed Min A for Sit to supine. Used long handled shoe horn to don slippers. Gait Assessment Gait Gait Assistance Required: Contact Guard Assist Distance (Feet) 300 Able to Maintain Weight Bearing Status Yes During Gait Assistive Devices Assistive Device Gait Belt Front Wheeled Walker Gait Deviations General Gait Pattern Decreased Stride Length Decreased Feet Clearance Lateral Trunk Lean Factors Limiting Gait Function Factors Limiting Gait Function Decreased Activity Tolerance Decreased Strength Pain Comments Gait Comments Pt continues to WB heavily through UEs, needs cues to correct. Eager to increase ambulation distance this afternoon. M5 PT-IP Objective Assessments Start: 01/11/18 13:24 Freq: NEEDED Status: Active Protocol: Document 01/11/18 14:42 (Rec: 01/11/18 15:43 [email or web address]) Orientation Orientation/Cognition Level of Alertness Alert Orientation Name Age Birthday Month Date Year Day of Week Place Situation Safety Awareness Decreased Safety Awareness Gross Range of Motion Lower Extremity ROM Assessment Right Impaired Impairments Posterior hip precautions. Strength Lower Extremity Strength Assessment Right Impaired Comments Strength Comments RLE grossly 3+/5. LLE WNL Sensation Assessment Sensation Light Touch Impaired Comments Sensation Comments Pt has some tingling in RLE and sensation is decreased. M6 PT-IP Treatment Start: 01/11/18 13:24 Freq: NEEDED Status: Active Protocol: Document 01/13/18 15:23 SA (Rec: 01/13/18 15:33 [id number]) Physical Therapy Treatment Exercises Exercises Ankle Pumps Gluteal Sets Quad Sets Heel Slides Supine Hip Abduction Education Education Provided Precautions Post-Op Packet Safety M7 PT-IP Assessment and Plan Start: 01/11/18 13:24 Freq: NEEDED Status: Active Protocol: Document 01/13/18 15:23 (Rec: 01/13/18 15:33 [id number]) PT Summary Assessment and Plan Potential Rehabilitation Potential Good Summary Progress Towards Goals Progressing Toward Goals Assessment Summary Recommend pt d/c to SNF for continued strength/balance training as he lives in a boat , alone with steep stairs/ ladders. Frequency of Treatment Frequency Of Treatment Twice a Day Recommendations To Nursing Amount of Assist Needed 1 Person Assist Discharge Recommendations PT Discharge Recommendations SNF Rehab
[2018-01-13] MEDS: ZOLPIDEM 5 MG TABLET PO (23:53)
[2018-01-14] MEDS: HYDROCODONE/ACET 5/325 TABLET 1 TAB PO ×2 (04:24→13:15)
[2018-01-14 06:13] VITALS: BP 118/75; PULSE 81; RESP 16; TEMP 36.8; O2SAT 96
[2018-01-14 07:50] VITALS: BP 115/72; PULSE 81; RESP 18; TEMP 36.4; O2SAT 93
--- NOTE | 2018-01-14 08:24 | CM.DPC ---
D/C packet faxed to [facility]
--- NOTE | 2018-01-14 08:48 | CM.DPC ---
DCP: continued: Savanna Muñiz has ok'd pt for d/c to [facility] today. SNF order paperwork is faxed to [facility] Attempted to call Cathy/[facility] to confirm plan as set up yesterday/mailbox is full. She is updated via fax. Kelli will be here as planned to transport pt to the facility. Will follow prn until pt leaves.
--- NOTE | 2018-01-14 09:49 | PT.IPTN ---
Current Diagnoses Unilateral primary osteoarthritis, right hip (01/11/18) Surgery Performed Operation Date: 01/11/18 10:00 Actual Procedures p Total Hip Arthroplasty(Right) - Hernán Almonte MD Physical Therapy Treatment Note M2 PT-IP Current Condition Start: 01/11/18 13:24 Freq: NEEDED Status: Active Protocol: Document 01/11/18 14:42 (Rec: 01/11/18 15:43 [email or web address]) Physical Therapy Current Condition Current Condition Evaluation Date 01/11/18 Treatment Diagnosis R YASMIN; difficulty walking Onset Date 01/11/2018 Precautions Posterior Hip Precautions No Hip Flexion > 90 degrees No Hip Internal Rotation No Hip Adduction Weight Bearing Status Weight Bearing Status Weight Bear as Tolerated M3 PT-IP Subjective Start: 01/11/18 13:24 Freq: NEEDED Status: Active Protocol: Document 01/14/18 09:42 SA (Rec: 01/14/18 09:49 SA [id number]) Subjective Physical Therapy Visit Type Type Treatment Note Visit Start Time 08:57 Visit Stop Time 09:21 Total Visit Minutes 24 Number of SHIPPING SUPERVISOR Visits 3 Physical Therapy Visit Comments Patient Comments Pt just finished breakfast, notes slight increase in hip soreness today but still very tolerable. Therapy Pain Assessment Pain When Pain Assessed During Mobility Pain Present Pain Present Pain Reported Location Right Hip Intensity 2 Scale Used Numeric (1 - 10) Pain Management Techniques Apply Cold Re-positioning Timing of Activity with Medications M4 PT-IP Mobility and Gait Start: 01/11/18 13:24 Freq: NEEDED Status: Active Protocol: Document 01/14/18 09:42 SA (Rec: 01/14/18 09:49 [id number]) PT-Bed Mobility Assessment Rolling Type of Rolling Roll to Right Supine to Sit Supine to Sit Standby Assistance Sit to Supine Sit to Supine Standby Assistance Scooting Scooting to Edge of Bed Contact Guard Assistance PT-Transfer Assessment Sit to and From Stand Sit to and from Stand Standby Assistance 1 Person Assistance Use of Upper Extremities Equipment Transfer Assistive Device Gait Belt Front Wheeled Walker Transfers Transfer Destination Bed Toilet Transfer Ability Level of Assist Standby Assistance Comments Mobility Comments Pt able to clear BLEs over EOB this AM with Supine<>Sit. SBA with all transfers in room this AM. Gait Assessment Gait Gait Assistance Required: Contact Guard Assist Distance (Feet) 300 Able to Maintain Weight Bearing Status Yes During Gait Assistive Devices Assistive Device Gait Belt Front Wheeled Walker Gait Deviations General Gait Pattern Decreased Stride Length Decreased Feet Clearance Lateral Trunk Lean Factors Limiting Gait Function Factors Limiting Gait Function Decreased Activity Tolerance Decreased Strength Pain Comments Gait Comments Improving posture and WBing through RLE with gait, pt needs increased correctional cues as he fatigues. Stair Climbing Assessment Evaluation Level of Assist On Stairs Contact Guard Assistance Devices Stair Climbing Assistive Devices Left Railing Right Railing Technique/Endurance Stair Climbing Direction Ascend and Descend Stair Climbing Technique Step to Step Number of Steps Climbed 3 Query Text: Stair Climbing Set # Repetitions (reps) 2 Comments Stair Climbing Comments PT with SBA-CGA and step to gait pattern on stairs. Education for safe navigation of stairs. PT-Balance Assessment Sitting Balance and Reactions Static Sitting Balance Ability Good Dynamic Sitting Balance Ability Good M5 PT-IP Objective Assessments Start: 01/11/18 13:24 Freq: NEEDED Status: Active Protocol: Document 01/11/18 14:42 (Rec: 01/11/18 15:43 [email or web address]) Orientation Orientation/Cognition Level of Alertness Alert Orientation Name Age Birthday Month Date Year Day of Week Place Situation Safety Awareness Decreased Safety Awareness Gross Range of Motion Lower Extremity ROM Assessment Right Impaired Impairments Posterior hip precautions. Strength Lower Extremity Strength Assessment Right Impaired Comments Strength Comments RLE grossly 3+/5. LLE WNL Sensation Assessment Sensation Light Touch Impaired Comments Sensation Comments Pt has some tingling in RLE and sensation is decreased. M6 PT-IP Treatment Start: 01/11/18 13:24 Freq: NEEDED Status: Active Protocol: Document 01/14/18 09:42 (Rec: 01/14/18 09:49 [id number]) Physical Therapy Treatment Exercises Exercises Ankle Pumps Gluteal Sets Quad Sets Heel Slides Supine Hip Abduction Education Education Provided Precautions Post-Op Packet Safety M7 PT-IP Assessment and Plan Start: 01/11/18 13:24 Freq: NEEDED Status: Active Protocol: Document 01/14/18 09:42 (Rec: 01/14/18 09:49 [id number]) PT Summary Assessment and Plan Potential Rehabilitation Potential Good Summary Progress Towards Goals Progressing Toward Goals Assessment Summary Pt to d/c this afternoon to SNF. To have caregiver training with his partner for car transfers at time of D/C (1:00 ) as per Nursing. Frequency of Treatment Frequency Of Treatment Twice a Day Recommendations To Nursing Amount of Assist Needed 1 Person Assist Discharge Recommendations PT Discharge Recommendations SNF Rehab
[2018-01-14] MEDS: ACETAMINOPHEN 325 MG TABLET 975 MG PO (09:53)
[2018-01-14] MEDS: ENOXAPARIN 40 MG/0.4 ML SYRINGE SUBCUT (09:53)
--- NOTE | 2018-01-14 10:37 | PM.DS.1 ---
History of Present Illness Date Patient Seen: 01/14/18 Time Patient Seen: 07:38 Chief complaint: 10680 RIGHT TOTAL HIP ARHTORPLASTY Narrative: Patient's pain is mild to moderate parents pain is currently well managed. Secondary to his home living situation patient will need nursing home facility upon discharge. Denies fever chills. No nausea vomiting. Has been up walking in the [place]. Discharge Providers Date of admission: 01/11/18 08:48 Primary care physician: Dominik Preston MD Consults: 01/11/18 11:59 Consult to Discharge Planning Routine Comment: ECF planning Consult to Physical Therapy Evaluate & Treat Comment: Physician Instructions: post op YASMIN protocol Consult to Respiratory Therapy Evaluate & Treat Comment: Physician Instructions: Evaluate and treat Discharge provider: Marshal Muñiz PA-C Discharge Date: 01/14/18 Summary Discharge Diagnosis: Status post right total hip arthroplasty Hospital Course: 72-year-old male with severe right hip DJD. Patient failed outpatient conservative treatment. Patient was admitted to the hospital for right total hip arthroplasty. Consent obtained. Patient taken to the operating room underwent right total hip arthroplasty. Patient back in his room recovering well and is in stable condition. Patient received general and spinal anesthesia. Status at Discharge Functional status at discharge: uses cane/walker Overall status at discharge: patient is progressing back to baseline Time Spent with Patient Less than 30 minutes Exam Vital Signs (past 8 hours): - 01/14/18 06:13 01/14/18 07:50 Temperature 98.3 F 97.5 F L Pulse Rate 81 81 Respiratory Rate 16 18 Blood Pressure 118/75 115/72 Pulse Oximetry 96 93 Oxygen Delivery Method Room Air Oxygen Flow Rate 0 Narrative Exam Narrative: Pleasant 72-year-old male resting comfortably in bed in no apparent distress. Right hip dressing is clean, dry and intact. Sensation grossly intact to light touch. Motor function is intact distal right lower extremity. Objective Labs Result Diagrams: 01/12/18 05:24 Discharge Plan Discharge Plan Patient Disposition: [facility] Other facility: [facility] Transportation: Private vehicle I certify the postop hospital nursing home care is medically necessary on a continuing basis for any conditions for which he/ she received care during this hospitalization.: Yes The receiving facility has agreed to accept transfer and provide medical treatment.: Yes Discharge Med Rec/Prescriptions Prescriptions: New hydrocodone-acetaminophen 5-325 mg Tablet 1 tab PO Q4HR PRN (Reason: Pain, Moderate (4-6)) Qty: 60 RF: 0 docusate sodium 100 mg Capsule 100 mg PO BID PRN (Reason: Constipation) Qty: 30 RF: 0 hydroxyzine pamoate 25 mg Capsule 25 mg PO Q6HR PRN (Reason: Spasms) Qty: 30 RF: 0 enoxaparin [Lovenox] 40 mg/0.4 mL Syringe 40 mg subcut DAILY Qty: 7 RF: 0 acetaminophen 325 mg Tablet 500 mg PO TID Qty: 60 RF: 0 Continue dextroamphetamine-amphetamine [Adderall] 20 mg Tablet 10 mg PO DAILY PRN (Reason: low energy) RF: 0 ibuprofen 200 mg Tablet 400 mg PO BID PRN (Reason: pain) RF: 0 zolpidem [Ambien] 5 mg Tablet 5 mg PO BEDTIME PRN (Reason: Sleep) RF: 0 sildenafil (antihypertensive) 20 mg Tablet 2 - 5 tab PO PRN PRN (Reason: Sexual Activity) RF: 0 Discontinued hydrocodone-acetaminophen 5-325 mg Tablet 1 tab PO Q4-6H PRN (Reason: Pain, Moderate) RF: 0 Follow up/Referrals: Dominik Preston MD [Primary Care Provider] - Hernán Almonte MD [Physician] - 1 Week Discharge Health Status Brief summary of current health status: stable status post left YASMIN Multidrug resistant organism: No MDRO Provider Discharge Instructions Diet: Diet as Tolerated Activity: Weightbearing as tolerated, posterior hip precautions Cold/Heat Therapy: Iced as needed Other treatments: Patient is on Tylenol and [place], Tylenol dose not to exceed 4 g per day. Patient will complete course of Lovenox and then start aspirin 81 mg b.i.d. Skin/Wound/Dressing Care Report to your healthcare provider any signs of infection, such as:: chills, fever, night sweats, increased pain and unusual drainage Dressing: Keep clean and dry [facility] Reason for rehabilitation: Post-operative therapy Rehab type: Physical therapy Restrictions to mobility: Posterior hip precautions Visit Report/Discharge Packet Instructions: DI for Hip Replacement Discharge Data Primary Care Provider: Dominik Preston Attending Provider: Hernán Almonte Admit Date/Time: 01/11/18 08:48 Quality VTE Deep Vein Thrombosis/Pulmonary Embolism Present on Admission: No
--- NOTE | 2018-01-14 10:41 | P.DS_ITS ---
History of Present Illness Date Patient Seen: 01/14/18 Time Patient Seen: 07:38 Chief complaint: 32303 RIGHT TOTAL HIP ARHTORPLASTY Narrative: Patient's pain is mild to moderate parents pain is currently well managed. Secondary to his home living situation patient will need [place] [facility] facility upon discharge. Denies fever chills. No nausea vomiting. Has been up walking in the [place]. Discharge Providers Date of admission: 01/11/18 08:48 Primary care physician: Dominik Preston MD Consults: 01/11/18 11:59 Consult to Discharge Planning Routine Comment: ECF planning Consult to Physical Therapy Evaluate & Treat Comment: Physician Instructions: post op YASMIN protocol Consult to Respiratory Therapy Evaluate & Treat Comment: Physician Instructions: Evaluate and treat Discharge provider: Marshal Muñiz PA-C Discharge Date: 01/14/18 Summary Discharge Diagnosis: Status post right total hip arthroplasty Hospital Course: 72-year-old male with severe right hip DJD. Patient failed outpatient conservative treatment. Patient was admitted to the hospital for right total hip arthroplasty. Consent obtained. Patient taken to the operating room underwent right total hip arthroplasty. Patient back in his room recovering well and is in stable condition. Patient received general and spinal anesthesia. Status at Discharge Functional status at discharge: uses cane/walker Overall status at discharge: patient is progressing back to baseline Time Spent with Patient Less than 30 minutes Exam Vital Signs (past 8 hours): - 01/14/18 06:13 01/14/18 07:50 Temperature 98.3 F 97.5 F L Pulse Rate 81 81 Respiratory Rate 16 18 Blood Pressure 118/75 115/72 Pulse Oximetry 96 93 Oxygen Delivery Method Room Air Oxygen Flow Rate 0 Narrative Exam Narrative: Pleasant 72-year-old male resting comfortably in bed in no apparent distress. Right hip dressing is clean, dry and intact. Sensation grossly intact to light touch. Motor function is intact distal right lower extremity. Objective Labs Result Diagrams: 01/12/18 05:24 Discharge Plan Discharge Plan Patient Disposition: [facility] Other facility: [facility] Transportation: Private vehicle I certify the postop hospital [place] [facility] care is medically necessary on a continuing basis for any conditions for which he/ she received care during this hospitalization.: Yes The receiving facility has agreed to accept transfer and provide medical treatment.: Yes Discharge Med Rec/Prescriptions Prescriptions: New hydrocodone-acetaminophen 5-325 mg Tablet 1 tab PO Q4HR PRN (Reason: Pain, Moderate (4-6)) Qty: 60 RF: 0 docusate sodium 100 mg Capsule 100 mg PO BID PRN (Reason: Constipation) Qty: 30 RF: 0 hydroxyzine pamoate 25 mg Capsule 25 mg PO Q6HR PRN (Reason: Spasms) Qty: 30 RF: 0 enoxaparin [Lovenox] 40 mg/0.4 mL Syringe 40 mg subcut DAILY Qty: 7 RF: 0 acetaminophen 325 mg Tablet 500 mg PO TID Qty: 60 RF: 0 Continue dextroamphetamine-amphetamine [Adderall] 20 mg Tablet 10 mg PO DAILY PRN (Reason: low energy) RF: 0 ibuprofen 200 mg Tablet 400 mg PO BID PRN (Reason: pain) RF: 0 zolpidem [Ambien] 5 mg Tablet 5 mg PO BEDTIME PRN (Reason: Sleep) RF: 0 sildenafil (antihypertensive) 20 mg Tablet 2 - 5 tab PO PRN PRN (Reason: Sexual Activity) RF: 0 Discontinued hydrocodone-acetaminophen 5-325 mg Tablet 1 tab PO Q4-6H PRN (Reason: Pain, Moderate) RF: 0 Follow up/Referrals: Dominik Preston MD [Primary Care Provider] - Hernán Almonte MD [Physician] - 1 Week Discharge Health Status Brief summary of current health status: stable status post left YASMIN Multidrug resistant organism: No MDRO Provider Discharge Instructions Diet: Diet as Tolerated Activity: Weightbearing as tolerated, posterior hip precautions Cold/Heat Therapy: Iced as needed Other treatments: Patient is on Tylenol and [place], Tylenol dose not to exceed 4 g per day. Patient will complete course of Lovenox and then start aspirin 81 mg b.i.d. Skin/Wound/Dressing Care Report to your healthcare provider any signs of infection, such as:: chills, fever, night sweats, increased pain and unusual drainage Dressing: Keep clean and dry [facility] Reason for rehabilitation: Post-operative therapy Rehab type: Physical therapy Restrictions to mobility: Posterior hip precautions Visit Report/Discharge Packet Instructions: DI for Hip Replacement Discharge Data Primary Care Provider: Dominik Preston Attending Provider: Hernán Almonte Admit Date/Time: 01/11/18 08:48 Quality VTE Deep Vein Thrombosis/Pulmonary Embolism Present on Admission: No
[2018-01-14 11:25] VITALS: BP 127/77; PULSE 83; RESP 18; TEMP 36.9; O2SAT 91
--- NOTE | 2018-01-14 12:26 | PC.NURSE ---
Report called to Cathy ([phone]) at [facility]. Opportunity to answer questions given. Patient waiting for his S.O. Kelli to pick him up and transport to SNF about 1pm today.
[2018-01-14] MEDS: hydrOXYzine pamoate 25 MG CAPSULE PO (13:15)
--- NOTE | 2018-01-14 13:20 | PC.NURSE ---
Patient escorted out by P.T. to complete into car/transfer teaching with patient and Kelli. Paperwork envelop with prescriptions for SNF given to Kelli. Patient left with all belongings. Patient states he has follow up with ortho scheduled for in 1 week.
--- NOTE | 2018-01-14 13:58 | PT.IPTN ---
Current Diagnoses Unilateral primary osteoarthritis, right hip (01/11/18) Surgery Performed Operation Date: 01/11/18 10:00 Actual Procedures p Total Hip Arthroplasty(Right) - Hernán Almonte MD Physical Therapy Treatment Note M2 PT-IP Current Condition Start: 01/11/18 13:24 Freq: NEEDED Status: Discharge Protocol: Document 01/11/18 14:42 (Rec: 01/11/18 15:43 [email or web address]) Physical Therapy Current Condition Current Condition Evaluation Date 01/11/18 Treatment Diagnosis R YASMIN; difficulty walking Onset Date 01/11/2018 Precautions Posterior Hip Precautions No Hip Flexion > 90 degrees No Hip Internal Rotation No Hip Adduction Weight Bearing Status Weight Bearing Status Weight Bear as Tolerated M3 PT-IP Subjective Start: 01/11/18 13:24 Freq: NEEDED Status: Discharge Protocol: Document 01/14/18 13:47 SA (Rec: 01/14/18 13:57 SA [id number]) Subjective Physical Therapy Visit Type Type Treatment Note Visit Start Time 13:14 Visit Stop Time 13:37 Total Visit Minutes 23 Number of ADMISSIONS RECRUITER Visits 4 Physical Therapy Visit Comments Patient Comments Pt ready to d/c with partner Kelli present and ready for car transfer training. Therapy Pain Assessment Pain When Pain Assessed During Mobility Pain Present Pain Present Pain Reported Location Right Hip Intensity 4 Scale Used Numeric (1 - 10) Pain Management Techniques Apply Cold Re-positioning Timing of Activity with Medications M4 PT-IP Mobility and Gait Start: 01/11/18 13:24 Freq: NEEDED Status: Discharge Protocol: Document 01/14/18 13:47 SA (Rec: 01/14/18 13:57 SA [id number]) PT-Transfer Assessment Sit to and From Stand Sit to and from Stand Standby Assistance 1 Person Assistance Use of Upper Extremities Equipment Transfer Assistive Device Gait Belt Front Wheeled Walker Transfers Transfer Destination Chair Car Transfer Ability Level of Assist Minimal Assistance Comments Mobility Comments Car transfer training conducted with patient and his partner Kelli. Education for 90 degree hip flexion precaution as minivan is fairly low and proper technique is needed to maintain precautions with transfer. Kelli and pt receptive to cues and pt able to complete safely with Min A for RLE to clear bottom of door frame. Gait Assessment Gait Gait Assistance Required: Standby Assistance Distance (Feet) 500 Able to Maintain Weight Bearing Status Yes During Gait Assistive Devices Assistive Device Gait Belt Front Wheeled Walker Gait Deviations General Gait Pattern Decreased Stride Length Decreased Feet Clearance Lateral Trunk Lean Factors Limiting Gait Function Factors Limiting Gait Function Decreased Activity Tolerance Decreased Strength Pain Comments Gait Comments Longer distance walk to front entrance of Hospital, pt cues for pacing and upright posture . Tolerated well and reported mild fatigue. M5 PT-IP Objective Assessments Start: 01/11/18 13:24 Freq: NEEDED Status: Discharge Protocol: Document 01/11/18 14:42 (Rec: 01/11/18 15:43 [email or web address]) Orientation Orientation/Cognition Level of Alertness Alert Orientation Name Age Birthday Month Date Year Day of Week Place Situation Safety Awareness Decreased Safety Awareness Gross Range of Motion Lower Extremity ROM Assessment Right Impaired Impairments Posterior hip precautions. Strength Lower Extremity Strength Assessment Right Impaired Comments Strength Comments RLE grossly 3+/5. LLE WNL Sensation Assessment Sensation Light Touch Impaired Comments Sensation Comments Pt has some tingling in RLE and sensation is decreased. M6 PT-IP Treatment Start: 01/11/18 13:24 Freq: NEEDED Status: Discharge Protocol: Document 01/14/18 13:57 SA (Rec: 01/14/18 13:57 [id number]) Physical Therapy Treatment Education Education Provided Precautions Safety Other Treatments Other Treatment Performed Caregiver training M7 PT-IP Assessment and Plan Start: 01/11/18 13:24 Freq: NEEDED Status: Discharge Protocol: Document 01/14/18 13:47 SA (Rec: 01/14/18 13:57 [id number]) PT Summary Assessment and Plan Potential Rehabilitation Potential Good Summary Progress Towards Goals Progressing Toward Goals Assessment Summary Pt d/kev to SNF for continued PT, and completed car transfer training with his partner. Frequency of Treatment Frequency Of Treatment Twice a Day Recommendations To Nursing Amount of Assist Needed 1 Person Assist Discharge Recommendations PT Discharge Recommendations SNF Rehab
== END 2018-01-14 13:20 | DRG 470 ==
PROVIDERS: Admitting Provider Orthopaedic Surgery; PCP Family Medicine; Visit Provider Orthopaedic Surgery
PROC: 0SR90JZ Replacement of Right Hip Joint with Synthetic Substitute, Open Approach (ICD-10-PCS; CPT 27130; principal; 2018-01-11 10:00)
DX: M16.11 Unilateral primary osteoarthritis, right hip (principal); Z87.891 Personal history of nicotine dependence
CPT/HCPCS: 36415; 72170; 85014; 85018; 97110; 97116; 97161; 97530; C1776; J0690; J1100; J1650; J2250; J2704